=== PATIENT | male | born 1940 ===

== ENCOUNTER 2023-04-24 06:15 | Outpatient (CLI) | payer OTHER ==
[2023-04-24 07:05] LABS: HEMATOCRIT 41.4 % (39.0-48.0); HEMOGLOBIN 13.6 g/dL (13-16.00); MEAN CELL VOLUME 90.4 fL (80.0-100.00); MEAN CORPUSCULAR HEMOGLOBIN 29.6 pg (27.00-32.0); MEAN CORPUSCULAR HGB CONC 32.7 g/dl (32.0-36.0); PLATELET COUNT 157 K/uL (150-450); RED BLOOD COUNT 4.59 M/uL (4.00-6.00); RED CELL DISTRIBUTION WIDTH 13.6 % (11.5-14.5)
[2023-04-24 08:02] LABS: CALCIUM 9.2 mg/dL (8.5-10.1); CREATININE SERUM 1.08 mg/dL (0.70-1.30); GFR 65.62; POTASSIUM 4.38 mEq/L (3.5-5.1)
[2023-04-24 08:26] LABS: PARTIAL THROMBOPLASTIN TIME 26.4 SECONDS (22.0-34.0)
[2023-04-24] MEDS ORDERED: TROSPIUM CHLORI20 MG PO (13:35)
[2023-04-24] MEDS ORDERED: TAMS0.4C PO (13:36)
[2023-04-24] MEDS ORDERED: PROTONIX40 MG PO (13:36)
[2023-04-24] MEDS ORDERED: TOPROL XL25 M1 PO (13:36)
[2023-04-24] MEDS ORDERED: LIPITOR40 M1 PO (13:37)
[2023-04-24] MEDS ORDERED: FAMOTIDINE40 MG PO (13:37)
[2023-04-24] MEDS ORDERED: CENTRUM ADULTS1 EACH PO (13:38)
[2023-04-24] MEDS ORDERED: TRAM1TAB98 PO (13:38)
[2023-04-24] MEDS ORDERED: FOLIC ACID1 MG PO (13:39)
== END 2023-04-24 06:16 | disposition home or self-care (01) ==
LOC: LAB 06:15
PROVIDERS: ATTEND Orthopaedic Surgery Orthopaedic Surgery of the Spine
DX: U07.1 COVID-19 (principal); Z03.818 Encounter for observation for suspected exposure to other biological agents ruled out; Z20.828 Contact with and (suspected) exposure to other viral communicable diseases; D68.9 Coagulation defect, unspecified; D64.9 Anemia, unspecified; E03.9 Hypothyroidism, unspecified; R07.9 Chest pain, unspecified

== ENCOUNTER 2023-04-24 08:11 | Inpatient (IN) | payer OTHER ==
[~2023-04-24] VITALS: Ht 162.6 cm; Wt 67.1 kg
[2023-04-24] MEDS ORDERED: TROSPIUM CHLORI20 MG PO (13:35)
[2023-04-24] MEDS ORDERED: TOPROL XL25 M1 PO (13:36)
[2023-04-24] MEDS ORDERED: PROTONIX40 MG PO (13:36)
[2023-04-24] MEDS ORDERED: TAMS0.4C PO (13:36)
[2023-04-24] MEDS ORDERED: FAMOTIDINE40 MG PO (13:37)
[2023-04-24] MEDS ORDERED: LIPITOR40 M1 PO (13:37)
[2023-04-24] MEDS ORDERED: CENTRUM ADULTS1 EACH PO (13:38)
[2023-04-24] MEDS ORDERED: TRAM1TAB98 PO (13:38)
[2023-04-24] MEDS ORDERED: FOLIC ACID1 MG PO (13:39)
[2023-04-29] MEDS ORDERED: AMOX-CLAV 875-1 EACH PO (14:23)
[2023-04-29] MEDS ORDERED: PERCOCET 5-3251 EACH PO (14:23)
[2023-04-29] MEDS ORDERED: MEDROLPACK PO (14:23)
[2023-04-29] MEDS ORDERED: COLACE100 MG PO (14:23)
[2023-04-29] MEDS ORDERED: GABAPENTIN100 M2 PO (14:24)
[2023-04-29] MEDS ORDERED: NEURONTIN800 MG PO (14:24)
[2023-04-30 07:13] LABS: HEMATOCRIT 37.2 % (39.0-48.0); HEMOGLOBIN 12.4 g/dL (13-16.00); MEAN CELL VOLUME 90.4 fL (80.0-100.00); MEAN CORPUSCULAR HEMOGLOBIN 30.2 pg (27.00-32.0); MEAN CORPUSCULAR HGB CONC 33.4 g/dl (32.0-36.0); PLATELET COUNT 156 K/uL (150-450); RED BLOOD COUNT 4.11 M/uL (4.00-6.00); RED CELL DISTRIBUTION WIDTH 13.4 % (11.5-14.5)
[2023-04-30 07:24] LABS: CALCIUM 8.7 mg/dL (8.5-10.1); CREATININE SERUM 0.94 mg/dL (0.70-1.30); GFR 77.02; POTASSIUM 4.9 mEq/L (3.5-5.1)
== END 2023-05-01 18:38 | disposition home health service (06) | DRG 455 ==
LOC: EDUNIT# 04-25 09:00 → O/R 04-29 06:58 → SURG 04-29 09:00 → PED 04-29 20:15
PROVIDERS: ADMIT Orthopaedic Surgery Orthopaedic Surgery of the Spine; ATTEND Orthopaedic Surgery Orthopaedic Surgery of the Spine
PROC: 0SG30K1 Fusion of Lumbosacral Joint with Nonautologous Tissue Substitute, Posterior Approach, Posterior Column, Open Approach (ICD-10-PCS; 2023-04-29)
PROC: 0QB30ZZ Excision of Left Pelvic Bone, Open Approach (ICD-10-PCS; 2023-04-29)
PROC: 0ST40ZZ Resection of Lumbosacral Disc, Open Approach (ICD-10-PCS; 2023-04-29)
PROC: 0QP005Z Removal of External Fixation Device from Lumbar Vertebra, Open Approach (ICD-10-PCS; 2023-04-29)
PROC: 07DR0ZZ Extraction of Iliac Bone Marrow, Open Approach (ICD-10-PCS; 2023-04-29)
PROC: 4A1104G Monitoring of Peripheral Nervous Electrical Activity, Intraoperative, Open Approach (ICD-10-PCS; 2023-04-29)
PROC: 4A12X4Z Monitoring of Cardiac Electrical Activity, External Approach (ICD-10-PCS; 2023-04-29)
PROC: 3E0F7SF Introduction of Other Gas into Respiratory Tract, Via Natural or Artificial Opening (ICD-10-PCS; 2023-04-29)
PROC: XRGD0R7 Fusion of Lumbosacral Joint using Custom-Made Anatomically Designed Interbody Fusion Device, Open Approach, New Technology Group 7 (ICD-10-PCS; principal; 2023-04-29 13:30)
DX: M43.17 Spondylolisthesis, lumbosacral region (principal); M48.07 Spinal stenosis, lumbosacral region; M54.17 Radiculopathy, lumbosacral region; M51.37 Other intervertebral disc degeneration, lumbosacral region; I10 Essential (primary) hypertension